=== PATIENT | female | born 1940 | race Caucasian/White ===

== ENCOUNTER 2024-08-15 09:48 | Inpatient (IN) | payer MEDICARE, SELFPAY ==
[~2024-08-15] VITALS: Ht 147.3 cm; Wt 57.7 kg
[2024-08-15] MEDS ORDERED: DEXTROSE 50% 50ML SYRINGE As Ordered ONE (09:59)
[2024-08-15] MEDS: DEXTROSE 50% 50ML SYRINGE IV STA (10:01)
[2024-08-15 10:48] LABS: BASO % 0.6 % (0.0-1.0); EOS # 0.2 10^3/uL (0.0-0.5); EOS % 4.2 % (0.0-3.0); HEMOGLOBIN 11.7 g/dl (12.0-15.5); LYMPH # 1.1 10^3/uL (1.5-5.0); LYMPH % 21.1 % (24.0-44.0); MEAN CORPUSCULAR HEMOGLOBIN 28.6 pg (27.0-33.0); MEAN CORPUSCULAR HGB CONC 30.8 g/dl (32.0-36.5); MEAN CORPUSCULAR VOLUME 92.9 fl (80.0-96.0); MONO # 0.3 10^3/uL (0.0-0.8); MONO % 5.9 % (2.0-8.0); NEUTROPHILS # 3.5 10^3/uL (1.5-8.5); NEUTROPHILS % 67.6 % (36.0-66.0); PLATELET COUNT, AUTOMATED 308 10^3/uL (150-450); RED BLOOD COUNT 4.09 10^6/uL (4.00-5.40); WHITE BLOOD COUNT 5.2 10^3/uL (4.0-10.0)
[2024-08-15 10:58] LABS: HEMOGLOBIN A1c 6.8 % (4.0-6.0)
[2024-08-15] MEDS ORDERED: CARV3.12 PO (11:00)
[2024-08-15] MEDS ORDERED: FERR324T2 PO (11:00)
[2024-08-15] MEDS ORDERED: ACET-683 PO (11:00)
[2024-08-15] MEDS ORDERED: SENN-52 PO (11:00)
[2024-08-15] MEDS ORDERED: AMOX875T2 PO (11:00)
[2024-08-15] MEDS ORDERED: TRAM50TA2 PO (11:00)
[2024-08-15] MEDS ORDERED: CLOP75TA2 PO (11:00)
[2024-08-15] MEDS ORDERED: GLUC0.8I IM (11:00)
[2024-08-15] MEDS ORDERED: PROT1TAB2 PO (11:00)
[2024-08-15] MEDS ORDERED: LEVO50TA5 PO (11:00)
[2024-08-15] MEDS ORDERED: ACET1TAB55 PO (11:00)
[2024-08-15] MEDS ORDERED: FURO40TA2 PO (11:00)
[2024-08-15] MEDS ORDERED: GABA-1172 PO (11:00)
[2024-08-15] MEDS ORDERED: LANTINJ4 SC (11:00)
[2024-08-15] MEDS ORDERED: CELE100C PO (11:00)
[2024-08-15] MEDS ORDERED: VENL75TA2 PO (11:00)
[2024-08-15] MEDS ORDERED: POTA1TAB23 PO (11:00)
[2024-08-15] MEDS ORDERED: HOME MED LIST COMPLETE! XX SCH (11:05)
[2024-08-15 11:13] LABS: CALCIUM LEVEL 7.9 MG/DL (8.3-10.6); CREATININE FOR GFR 1.13 MG/DL (0.55-1.30); GLOMERULAR FILTRATION RATE 48.8 (>32); POTASSIUM SERUM 5.4 MMOL/L (3.5-5.1)
[2024-08-15 14:00] VITALS: BP 109/60; TEMP 97.9; O2SAT 97
[2024-08-15] MEDS: DOCUSATE SODIUM 100MG CAPSULE PO SCH (15:19)
[2024-08-15] MEDS ORDERED: traMADol 50 MG TAB PO PRN (17:00)
[2024-08-15] MEDS: RIVAROXABAN 10MG TAB (XARELTO) PO SCH (17:38)
[2024-08-15 20:00] VITALS: BP 146/76; TEMP 97.7; O2SAT 93
[2024-08-15] MEDS: CelecoXIB (CeleBREX) 100 MG CAP PO SCH (20:24)
[2024-08-15] MEDS: VENLAFAXINE 37.5 MG TAB PO SCH (20:24)
[2024-08-15] MEDS: GABAPENTIN 300 MG CAP PO SCH (20:27)
[2024-08-15] MEDS: CARVedilol 3.125 MG TAB PO SCH (20:28)
[2024-08-15] MEDS: ACETAMINOPHEN 500 MG TAB PO SCH (20:32)
[2024-08-15] MEDS: SENOKOT S TAB PO SCH (20:33)
[2024-08-15] MEDS: AUGMENTIN 500MG TAB PO SCH (20:39)
[2024-08-15] MEDS ORDERED: AUGMENTIN 875 MG TAB PO SCH (21:00)
[2024-08-16] MEDS: INSULIN LISPRO (NovoLOG) PER UNIT SC ONE (00:37)
[2024-08-16 04:00] VITALS: BP 132/55; TEMP 97.5; O2SAT 91
[2024-08-16] MEDS: LEVOTHYROXINE 50MCG TABLET (0.05MG) PO SCH (06:25)
[2024-08-16 06:39] LABS: BASO # 0.1 10^3/uL (0.0-0.2); EOS # 0.2 10^3/uL (0.0-0.5); EOS % 3.2 % (0.0-3.0); HEMATOCRIT 31.5 % (36.0-47.0); HEMOGLOBIN 9.8 g/dl (12.0-15.5); LYMPH # 1.3 10^3/uL (1.5-5.0); LYMPH % 25.5 % (24.0-44.0); MEAN CORPUSCULAR HEMOGLOBIN 27.9 pg (27.0-33.0); MEAN CORPUSCULAR HGB CONC 31.1 g/dl (32.0-36.5); MEAN CORPUSCULAR VOLUME 89.7 fl (80.0-96.0); MONO # 0.4 10^3/uL (0.0-0.8); MONO % 7.6 % (2.0-8.0); NEUTROPHILS # 3.1 10^3/uL (1.5-8.5); NEUTROPHILS % 62.3 % (36.0-66.0); PLATELET COUNT, AUTOMATED 283 10^3/uL (150-450); RED BLOOD COUNT 3.51 10^6/uL (4.00-5.40)
[2024-08-16 06:49] LABS: INR 1.89; PROTHROMBIN TIME 21.9 SECONDS (12.5-14.5)
[2024-08-16 07:15] LABS: ALBUMIN 1.1 G/DL (3.2-5.2); BILIRUBIN,DIRECT 0.1 MG/DL (<0.4); BILIRUBIN,TOTAL 0.2 MG/DL (0.3-1.2); CALCIUM LEVEL 7.7 MG/DL (8.3-10.6); CREATININE FOR GFR 1.23 MG/DL (0.55-1.30); GLOMERULAR FILTRATION RATE 44.3 (>32); TOTAL PROTEIN 4.5 G/DL (5.7-8.2)
[2024-08-16 08:00] VITALS: BP 125/54; TEMP 97.9; O2SAT 95
[2024-08-16] MEDS: PANTOPRAZOLE 40MG TAB (PROTONIX) PO SCH (08:42)
[2024-08-16] MEDS: CLOPIDOGREL 75 MG TAB PO SCH (08:43)
[2024-08-16] MEDS: LEVEMIR (INSULIN DETEMIR) 1 UNITS/0.01ML SC SCH ×2 (09:04→20:59)
[2024-08-16 12:00] VITALS: BP 148/49; TEMP 97.9; O2SAT 94
[2024-08-16] MEDS: INSULIN LISPRO (NovoLOG) PER UNIT SC SCH (13:15)
[2024-08-16] MEDS: FUROSEMIDE 20MG/2ML VIAL IV ONE (13:21)
[2024-08-16 20:33] VITALS: BP 151/53; TEMP 97.9; O2SAT 94
[2024-08-16] MEDS: SENNA 8.6 MG TAB (SENOKOT) PO SCH (20:35)
[2024-08-17 04:00] VITALS: TEMP 97.9; O2SAT 96
[2024-08-17] MEDS: GLUCOSE 4 GM CHEW PO PRN (04:34)
[2024-08-17 06:00] VITALS: BP 127/48
[2024-08-17] MEDS: INSULIN LISPRO (NovoLOG) PER UNIT SC SCH ×2 (07:30→09:44)
[2024-08-17 07:55] LABS: BASO # 0.1 10^3/uL (0.0-0.2); BASO % 1.4 % (0.0-1.0); EOS # 0.3 10^3/uL (0.0-0.5); EOS % 5.7 % (0.0-3.0); HEMATOCRIT 32.6 % (36.0-47.0); HEMOGLOBIN 10.1 g/dl (12.0-15.5); LYMPH # 1.3 10^3/uL (1.5-5.0); LYMPH % 30.4 % (24.0-44.0); MEAN CORPUSCULAR VOLUME 90.3 fl (80.0-96.0); MONO # 0.4 10^3/uL (0.0-0.8); MONO % 8.7 % (2.0-8.0); NEUTROPHILS # 2.3 10^3/uL (1.5-8.5); NEUTROPHILS % 53.1 % (36.0-66.0); PLATELET COUNT, AUTOMATED 269 10^3/uL (150-450); RED BLOOD COUNT 3.61 10^6/uL (4.00-5.40); WHITE BLOOD COUNT 4.4 10^3/uL (4.0-10.0)
[2024-08-17 08:22] LABS: CREATININE FOR GFR 1.22 MG/DL (0.55-1.30); GLOMERULAR FILTRATION RATE 44.7 (>32); POTASSIUM SERUM 4.9 MMOL/L (3.5-5.1)
[2024-08-17] MEDS: LEVEMIR (INSULIN DETEMIR) 1 UNITS/0.01ML SC SCH (09:44)
[2024-08-17] MEDS ORDERED: VARIBAR PUDDING 40% w/v 230ML TUBE As Ordered ONE (11:28)
[2024-08-17] MEDS ORDERED: E-Z-PAQUE 96% w/w SUSP 176GM BTL As Ordered ONE (11:28)
[2024-08-17] MEDS ORDERED: BARIUM SULFATE 700 MG TABLET (E-Z-DISK) As Ordered ONE (11:28)
[2024-08-17] MEDS ORDERED: VARIBAR NECTAR 40% w/v 240ML SUSP BTL As Ordered ONE (11:28)
[2024-08-17 12:00] VITALS: BP 143/52; TEMP 98.4; O2SAT 98
[2024-08-17] MEDS: DEXTROSE 50% 50ML SYRINGE IV PRN (17:47)
[2024-08-17 19:40] VITALS: BP 119/63; TEMP 97.9; O2SAT 97
[2024-08-18 03:40] VITALS: BP 143/60; TEMP 97.7; O2SAT 94
[2024-08-18 06:14] LABS: BASO # 0.1 10^3/uL (0.0-0.2); BASO % 1.3 % (0.0-1.0); EOS # 0.3 10^3/uL (0.0-0.5); EOS % 5.5 % (0.0-3.0); HEMATOCRIT 35.4 % (36.0-47.0); LYMPH # 1.3 10^3/uL (1.5-5.0); LYMPH % 28.6 % (24.0-44.0); MEAN CORPUSCULAR HEMOGLOBIN 28.1 pg (27.0-33.0); MEAN CORPUSCULAR HGB CONC 31.1 g/dl (32.0-36.5); MEAN CORPUSCULAR VOLUME 90.5 fl (80.0-96.0); MONO # 0.3 10^3/uL (0.0-0.8); MONO % 7.3 % (2.0-8.0); NEUTROPHILS # 2.6 10^3/uL (1.5-8.5); NEUTROPHILS % 56.6 % (36.0-66.0); PLATELET COUNT, AUTOMATED 254 10^3/uL (150-450); RED BLOOD COUNT 3.91 10^6/uL (4.00-5.40); WHITE BLOOD COUNT 4.6 10^3/uL (4.0-10.0)
[2024-08-18 06:40] LABS: CALCIUM LEVEL 7.7 MG/DL (8.3-10.6); CREATININE FOR GFR 1.01 MG/DL (0.55-1.30); GLOMERULAR FILTRATION RATE 55.6 (>32); POTASSIUM SERUM 4.7 MMOL/L (3.5-5.1)
[2024-08-18 08:00] VITALS: BP 144/60; TEMP 97.7; O2SAT 96
[2024-08-18] MEDS ORDERED: ISOVUE-370 76% 100ML VIAL As Ordered ONE (11:47)
[2024-08-18] MEDS: NS (Normal Saline) 0.9% 1,000 ML IV SCH (11:52)
[2024-08-18 12:00] VITALS: BP 147/61; TEMP 98.4; O2SAT 98
[2024-08-18 19:57] VITALS: BP_SYST 146; BP_SYST 165; BP_DIAS 65; TEMP 97.7; O2SAT 96
[2024-08-19 04:00] VITALS: BP 137/55; TEMP 98.6; O2SAT 96
[2024-08-19 06:55] LABS: BASO # 0.1 10^3/uL (0.0-0.2); EOS # 0.3 10^3/uL (0.0-0.5); EOS % 4.8 % (0.0-3.0); HEMATOCRIT 32.4 % (36.0-47.0); HEMOGLOBIN 10.3 g/dl (12.0-15.5); LYMPH # 1.4 10^3/uL (1.5-5.0); LYMPH % 27.7 % (24.0-44.0); MEAN CORPUSCULAR HEMOGLOBIN 28.4 pg (27.0-33.0); MEAN CORPUSCULAR HGB CONC 31.8 g/dl (32.0-36.5); MEAN CORPUSCULAR VOLUME 89.3 fl (80.0-96.0); MONO # 0.4 10^3/uL (0.0-0.8); MONO % 8.1 % (2.0-8.0); NEUTROPHILS % 57.8 % (36.0-66.0); PLATELET COUNT, AUTOMATED 258 10^3/uL (150-450); RED BLOOD COUNT 3.63 10^6/uL (4.00-5.40); WHITE BLOOD COUNT 5.2 10^3/uL (4.0-10.0)
[2024-08-19 07:23] LABS: BLOOD UREA NITROGEN 19 MG/DL (9-23); CALCIUM LEVEL 7.8 MG/DL (8.3-10.6); CARBON DIOXIDE LEVEL 26 MMOL/L (20-31); CHLORIDE LEVEL 106 MMOL/L (98-107); CREATININE FOR GFR 0.89 MG/DL (0.55-1.30); GLOMERULAR FILTRATION RATE > 60.0 (>32); GLUCOSE, FASTING 131 MG/DL (74-106); POTASSIUM SERUM 4.5 MMOL/L (3.5-5.1); SODIUM LEVEL 137 MMOL/L (136-145)
[2024-08-19 12:00] VITALS: BP 150/56; TEMP 97.9; O2SAT 94
[2024-08-19 16:23] VITALS: BP 148/57
[2024-08-19] MEDS: FUROSEMIDE 40MG/4ML VIAL IV ONE (16:26)
[2024-08-19] MEDS: INSULIN LISPRO (NovoLOG) PER UNIT SC SCH ×2 (17:58→17:59)
[2024-08-19 19:39] VITALS: BP 159/51; TEMP 97.3; O2SAT 95
[2024-08-19] MEDS: LEVEMIR (INSULIN DETEMIR) 1 UNITS/0.01ML SC SCH (21:25)
[2024-08-20] MEDS: DEXTROSE 50% 50ML SYRINGE IV STA (04:30)
[2024-08-20 04:46] VITALS: BP 157/52; TEMP 97.7; O2SAT 96
[2024-08-20 05:32] LABS: BASO # 0.1 10^3/uL (0.0-0.2); BASO % 1.3 % (0.0-1.0); EOS # 0.2 10^3/uL (0.0-0.5); EOS % 4.3 % (0.0-3.0); HEMATOCRIT 32.3 % (36.0-47.0); HEMOGLOBIN 9.9 g/dl (12.0-15.5); LYMPH # 1.2 10^3/uL (1.5-5.0); LYMPH % 23.3 % (24.0-44.0); MEAN CORPUSCULAR HEMOGLOBIN 28.6 pg (27.0-33.0); MEAN CORPUSCULAR HGB CONC 30.7 g/dl (32.0-36.5); MEAN CORPUSCULAR VOLUME 93.4 fl (80.0-96.0); MONO # 0.4 10^3/uL (0.0-0.8); MONO % 7.3 % (2.0-8.0); NEUTROPHILS # 3.4 10^3/uL (1.5-8.5); NEUTROPHILS % 63.2 % (36.0-66.0); PLATELET COUNT, AUTOMATED 235 10^3/uL (150-450); RED BLOOD COUNT 3.46 10^6/uL (4.00-5.40); WHITE BLOOD COUNT 5.3 10^3/uL (4.0-10.0)
[2024-08-20 05:48] LABS: BLOOD UREA NITROGEN 18 MG/DL (9-23); CALCIUM LEVEL 7.7 MG/DL (8.3-10.6); CARBON DIOXIDE LEVEL 22 MMOL/L (20-31); CHLORIDE LEVEL 110 MMOL/L (98-107); CREATININE FOR GFR 0.85 MG/DL (0.55-1.30); GLOMERULAR FILTRATION RATE > 60.0 (>32); GLUCOSE, FASTING 141 MG/DL (74-106); POTASSIUM SERUM 4.1 MMOL/L (3.5-5.1); SODIUM LEVEL 138 MMOL/L (136-145)
[2024-08-20 12:00] VITALS: BP 163/61; TEMP 97.7; O2SAT 95
[2024-08-20 19:59] VITALS: BP 141/56; TEMP 97.9; O2SAT 98
[2024-08-21 04:20] VITALS: BP 125/37; TEMP 97.9; O2SAT 94
[2024-08-21] MEDS: GLUCAGON INJ 1MG VIAL SC PRN (05:07)
[2024-08-21 05:09] VITALS: BP 161/67; TEMP 97.8; O2SAT 99
[2024-08-21] MEDS: D5W/0.9% SODIUM CHLORIDE 1,000 ML IV SCH (05:24)
[2024-08-21 05:41] LABS: BASO % 0.8 % (0.0-1.0); EOS # 0.2 10^3/uL (0.0-0.5); EOS % 4.3 % (0.0-3.0); HEMATOCRIT 34.3 % (36.0-47.0); HEMOGLOBIN 10.9 g/dl (12.0-15.5); LYMPH # 1.1 10^3/uL (1.5-5.0); LYMPH % 26.4 % (24.0-44.0); MEAN CORPUSCULAR HEMOGLOBIN 28.5 pg (27.0-33.0); MEAN CORPUSCULAR HGB CONC 31.8 g/dl (32.0-36.5); MEAN CORPUSCULAR VOLUME 89.6 fl (80.0-96.0); MONO # 0.3 10^3/uL (0.0-0.8); MONO % 6.5 % (2.0-8.0); NEUTROPHILS # 2.4 10^3/uL (1.5-8.5); NEUTROPHILS % 61.2 % (36.0-66.0); PLATELET COUNT, AUTOMATED 268 10^3/uL (150-450); RED BLOOD COUNT 3.83 10^6/uL (4.00-5.40)
[2024-08-21 06:08] LABS: ALBUMIN 1.1 G/DL (3.2-5.2); ALKALINE PHOSPHATASE 201 U/L (35-104); ALT/SGPT 19 U/L (7.0-40); AST/SGOT 19 U/L (<34); BILIRUBIN,TOTAL 0.3 MG/DL (0.3-1.2); BLOOD UREA NITROGEN 15 MG/DL (9-23); CALCIUM LEVEL 7.8 MG/DL (8.3-10.6); CARBON DIOXIDE LEVEL 27 MMOL/L (20-31); CHLORIDE LEVEL 108 MMOL/L (98-107); CREATININE FOR GFR 0.85 MG/DL (0.55-1.30); GLOMERULAR FILTRATION RATE > 60.0 (>32); GLUCOSE, FASTING 249 MG/DL (74-106); MAGNESIUM LEVEL 1.8 MG/DL (1.8-2.4); POTASSIUM SERUM 3.9 MMOL/L (3.5-5.1); SODIUM LEVEL 138 MMOL/L (136-145); TOTAL PROTEIN 4.6 G/DL (5.7-8.2)
[2024-08-21 07:00] VITALS: BP 169/72; O2SAT 98
[2024-08-21] MEDS: DEXTROSE 50% 50ML SYRINGE IV STA (07:00)
[2024-08-21 08:01] VITALS: BP 160/67; TEMP 96.2; O2SAT 98
[2024-08-21] MEDS: INSULIN LISPRO (NovoLOG) PER UNIT SC SCH (12:00)
[2024-08-21 12:02] VITALS: BP 162/71; TEMP 97; O2SAT 99
[2024-08-21] MEDS: MEGESTROL 400MG 10ML SUSP ORAL SYRINGE *DRAW UP EXACT DOSE PO SCH (17:26)
[2024-08-21 19:58] VITALS: BP 134/60; TEMP 97.2; O2SAT 98
[2024-08-22 03:34] VITALS: BP 115/49; TEMP 97; O2SAT 95
[2024-08-22 05:18] LABS: BASO # 0.1 10^3/uL (0.0-0.2); BASO % 0.9 % (0.0-1.0); EOS # 0.2 10^3/uL (0.0-0.5); HEMATOCRIT 35.7 % (36.0-47.0); HEMOGLOBIN 11.1 g/dl (12.0-15.5); MEAN CORPUSCULAR HEMOGLOBIN 28.2 pg (27.0-33.0); MEAN CORPUSCULAR HGB CONC 31.1 g/dl (32.0-36.5); MEAN CORPUSCULAR VOLUME 90.8 fl (80.0-96.0); MONO # 0.6 10^3/uL (0.0-0.8); MONO % 9.1 % (2.0-8.0); NEUTROPHILS # 3.6 10^3/uL (1.5-8.5); NEUTROPHILS % 55.5 % (36.0-66.0); PLATELET COUNT, AUTOMATED 236 10^3/uL (150-450); RED BLOOD COUNT 3.93 10^6/uL (4.00-5.40); WHITE BLOOD COUNT 6.4 10^3/uL (4.0-10.0)
[2024-08-22 05:40] LABS: BLOOD UREA NITROGEN 14 MG/DL (9-23); CALCIUM LEVEL 7.6 MG/DL (8.3-10.6); CARBON DIOXIDE LEVEL 24 MMOL/L (20-31); CHLORIDE LEVEL 109 MMOL/L (98-107); CREATININE FOR GFR 0.75 MG/DL (0.55-1.30); GLOMERULAR FILTRATION RATE > 60.0 (>32); GLUCOSE, FASTING 230 MG/DL (74-106); POTASSIUM SERUM 4.4 MMOL/L (3.5-5.1); SODIUM LEVEL 140 MMOL/L (136-145)
[2024-08-22 08:00] VITALS: BP 138/84; TEMP 96.7; O2SAT 96
[2024-08-22] MEDS: LEVEMIR (INSULIN DETEMIR) 1 UNITS/0.01ML SC SCH (10:36)
[2024-08-22] MEDS: NS (Normal Saline) 0.9% 1,000 ML IV ONE (13:30)
[2024-08-22 16:16] VITALS: BP_SYST 185; BP_SYST 190; BP_DIAS 71; BP_DIAS 78; TEMP 97.3; O2SAT 96
[2024-08-22 16:58] VITALS: BP 195/82
[2024-08-22] MEDS: cloNIDine 0.1MG TABLET PO ONE (17:23)
[2024-08-22] MEDS: NS 300 ML IV SCH (17:25)
[2024-08-22 18:42] VITALS: BP 161/68
[2024-08-22] MEDS: ISOSORBIDE DIN (ISORDIL) 10MG TAB PO ONE (18:45)
[2024-08-22 20:48] VITALS: BP 132/63; TEMP 98.3; O2SAT 99
[2024-08-23 04:43] VITALS: BP 168/71; TEMP 97.7; O2SAT 95
[2024-08-23 07:51] VITALS: BP 149/55; TEMP 97.9; O2SAT 96
[2024-08-23 07:52] LABS: HEMATOCRIT 30.8 % (36.0-47.0); HEMOGLOBIN 9.5 g/dl (12.0-15.5); MEAN CORPUSCULAR HEMOGLOBIN 28.6 pg (27.0-33.0); MEAN CORPUSCULAR HGB CONC 30.8 g/dl (32.0-36.5); MEAN CORPUSCULAR VOLUME 92.8 fl (80.0-96.0); PLATELET COUNT, AUTOMATED 245 10^3/uL (150-450); RED BLOOD COUNT 3.32 10^6/uL (4.00-5.40); WHITE BLOOD COUNT 5.9 10^3/uL (4.0-10.0)
[2024-08-23 08:35] LABS: BLOOD UREA NITROGEN 13 MG/DL (9-23); CALCIUM LEVEL 7.6 MG/DL (8.3-10.6); CARBON DIOXIDE LEVEL 22 MMOL/L (20-31); CHLORIDE LEVEL 111 MMOL/L (98-107); CREATININE FOR GFR 0.72 MG/DL (0.55-1.30); GLOMERULAR FILTRATION RATE > 60.0 (>32); GLUCOSE, FASTING 79 MG/DL (74-106); MAGNESIUM LEVEL 1.6 MG/DL (1.8-2.4); PHOSPHORUS LEVEL 2.3 MG/DL (2.4-5.1); POTASSIUM SERUM 4.3 MMOL/L (3.5-5.1); PREALBUMIN 6.5 MG/DL (10.0-40.0); SODIUM LEVEL 140 MMOL/L (136-145)
[2024-08-23] MEDS: LR 1,000 ML IV SCH (09:34)
[2024-08-23] MEDS: ISOSORBIDE DIN (ISORDIL) 10MG TAB PO SCH (09:36)
[2024-08-23] MEDS: CARVedilol 6.25 MG TAB PO SCH (09:36)
[2024-08-23 12:03] VITALS: BP 124/50; TEMP 97.1; O2SAT 97
[2024-08-23 20:00] VITALS: BP 160/71; TEMP 97.4; O2SAT 96
[2024-08-24 04:20] VITALS: BP 178/76; TEMP 97.7; O2SAT 97
[2024-08-24 05:26] LABS: BLOOD UREA NITROGEN 13 MG/DL (9-23); CALCIUM LEVEL 7.5 MG/DL (8.3-10.6); CARBON DIOXIDE LEVEL 24 MMOL/L (20-31); CHLORIDE LEVEL 109 MMOL/L (98-107); CREATININE FOR GFR 0.74 MG/DL (0.55-1.30); GLOMERULAR FILTRATION RATE > 60.0 (>32); GLUCOSE, FASTING 171 MG/DL (74-106); POTASSIUM SERUM 4.3 MMOL/L (3.5-5.1); SODIUM LEVEL 139 MMOL/L (136-145)
[2024-08-24 07:25] LABS: MAGNESIUM LEVEL 1.6 MG/DL (1.8-2.4)
[2024-08-24 07:37] VITALS: BP 178/76; TEMP 99; O2SAT 98
[2024-08-24 14:51] VITALS: BP 143/64
[2024-08-24] MEDS: MAG SULF 1GM/100ML (MAG RUN) 1 GM in IV 1 EA IV SCH (14:56)
[2024-08-24] MEDS: **hydrALAZINE HCL** 25 MG TAB PO SCH (14:57)
[2024-08-24 20:43] VITALS: BP 155/67; TEMP 98.1; O2SAT 98
[2024-08-24] MEDS: ACETAMINOPHEN 500 MG TAB PO SCH (21:12)
[2024-08-25 04:36] VITALS: BP 162/69; TEMP 98.8; O2SAT 98
[2024-08-25 05:09] LABS: BASO # 0.1 10^3/uL (0.0-0.2); EOS # 0.2 10^3/uL (0.0-0.5); EOS % 3.2 % (0.0-3.0); HEMATOCRIT 28.4 % (36.0-47.0); LYMPH # 1.8 10^3/uL (1.5-5.0); LYMPH % 29.3 % (24.0-44.0); MEAN CORPUSCULAR HEMOGLOBIN 28.1 pg (27.0-33.0); MEAN CORPUSCULAR HGB CONC 31.7 g/dl (32.0-36.5); MEAN CORPUSCULAR VOLUME 88.8 fl (80.0-96.0); MONO # 0.4 10^3/uL (0.0-0.8); MONO % 6.8 % (2.0-8.0); NEUTROPHILS # 3.7 10^3/uL (1.5-8.5); NEUTROPHILS % 59.2 % (36.0-66.0); PLATELET COUNT, AUTOMATED 314 10^3/uL (150-450); WHITE BLOOD COUNT 6.2 10^3/uL (4.0-10.0)
[2024-08-25 05:30] LABS: BLOOD UREA NITROGEN 14 MG/DL (9-23); CALCIUM LEVEL 7.6 MG/DL (8.3-10.6); CARBON DIOXIDE LEVEL 22 MMOL/L (20-31); CHLORIDE LEVEL 110 MMOL/L (98-107); CREATININE FOR GFR 0.79 MG/DL (0.55-1.30); GLOMERULAR FILTRATION RATE > 60.0 (>32); GLUCOSE, FASTING 204 MG/DL (74-106); MAGNESIUM LEVEL 2.1 MG/DL (1.8-2.4); POTASSIUM SERUM 4.5 MMOL/L (3.5-5.1); SODIUM LEVEL 140 MMOL/L (136-145)
[2024-08-25 07:56] VITALS: BP 120/56; TEMP 98.7; O2SAT 97
[2024-08-25 08:34] VITALS: BP 120/56
[2024-08-25 12:41] VITALS: BP 102/49; O2SAT 98
[2024-08-25] MEDS ORDERED: ATROPINE SULFATE 1% OPHTH SOLN 2ML BTL SL PRN (13:15)
[2024-08-25 13:55] VITALS: BP 156/58; TEMP 97.5; O2SAT 98
[2024-08-25] MEDS: LORazepam 1 MG TAB PO PRN (18:09)
[2024-08-26] MEDS: MORPHINE 10MG/0.5ML ORAL CONCENTRATE SOLUTION U/D SL PRN (00:29)
[2024-08-26] MEDS ORDERED: MORP1SOL5 PO (15:19)
[2024-08-26] MEDS ORDERED: HYOS125TA PO (15:19)
[2024-08-26] MEDS ORDERED: ATIV1TAB10 PO (15:19)
[2024-08-27] MEDS: SCOPOLAMINE 1MG TRANSDERMAL PATCH TOP PRN (07:34)
== END 2024-08-27 11:19 | disposition hospice, home (50) | DRG 637 ==
LOC: EDBD 09:48 → M ED 09:48 → M ED INP 12:59 → M MSPAV 14:00 → M ICU 08-21 05:04 → M MSPAV 08-25 13:44
PROVIDERS: ADMIT Internal Medicine Nephrology; ATTEND Internal Medicine
DX: E10.649 Type 1 diabetes mellitus with hypoglycemia without coma (principal); J15.9 Unspecified bacterial pneumonia; J69.0 Pneumonitis due to inhalation of food and vomit; G93.41 Metabolic encephalopathy; I69.354 Hemiplegia and hemiparesis following cerebral infarction affecting left non-dominant side; G62.81 Critical illness polyneuropathy; I25.10 Atherosclerotic heart disease of native coronary artery without angina pectoris; E10.51 Type 1 diabetes mellitus with diabetic peripheral angiopathy without gangrene; I69.319 Unspecified symptoms and signs involving cognitive functions following cerebral infarction; Z88.8 Allergy status to other drugs, medicaments and biological substances; E10.22 Type 1 diabetes mellitus with diabetic chronic kidney disease; R13.13 Dysphagia, pharyngeal phase; F01.50 Vascular dementia, unspecified severity, without behavioral disturbance, psychotic disturbance, mood disturbance, and anxiety; I12.9 Hypertensive chronic kidney disease with stage 1 through stage 4 chronic kidney disease, or unspecified chronic kidney disease; Z51.5 Encounter for palliative care; Z66 Do not resuscitate; N18.30 Chronic kidney disease, stage 3 unspecified; E03.9 Hypothyroidism, unspecified; F32.A Depression, unspecified; L89.622 Pressure ulcer of left heel, stage 2; G89.29 Other chronic pain; E86.0 Dehydration; R53.81 Other malaise; I69.391 Dysphagia following cerebral infarction; E83.42 Hypomagnesemia; E10.42 Type 1 diabetes mellitus with diabetic polyneuropathy; Z79.4 Long term (current) use of insulin; Z79.02 Long term (current) use of antithrombotics/antiplatelets; Z79.890 Hormone replacement therapy; Z95.820 Peripheral vascular angioplasty status with implants and grafts; Z79.899 Other long term (current) drug therapy; Z95.5 Presence of coronary angioplasty implant and graft; Z85.3 Personal history of malignant neoplasm of breast